=== PATIENT | male | born 1985 | race African-American/Black ===

== ENCOUNTER 2021-06-01 21:04 | Emergency (ER) | payer SELFPAY ==
[~2021-06-01] VITALS: Ht 180.3 cm; Wt 97.7 kg
[2021-06-01 22:00] VITALS: BP 137/69; PULSE 78; TEMP 98.1
== END 2021-06-01 22:00 | disposition home or self-care (01) ==
LOC: COL.ER 21:04
DX: S09.90XA Unspecified injury of head, initial encounter (principal); Z79.01 Long term (current) use of anticoagulants; W01.198A Fall on same level from slipping, tripping and stumbling with subsequent striking against other object, initial encounter; Y99.0 Civilian activity done for income or pay

== ENCOUNTER 2021-12-21 21:15 | Emergency (ER) | payer SELFPAY ==
[~2021-12-21] VITALS: Ht 177.8 cm; Wt 81.8 kg
[2021-12-21 21:24] VITALS: TEMP 97.9
[2021-12-21 21:50] LABS: BASO % 0.9 % (0.0-2.0); EOS % 0.9 % (0.0-4.0); GRAN # 1.6 K/mm3 (1.4-6.5); GRAN % 36.3 % (42.2-75.2); HEMATOCRIT 40.4 % (42.0-52.0); HEMOGLOBIN 14.6 g/dl (13.5-18.0); LYMPH # 2.2 K/mm3 (1.2-3.4); LYMPH % 50.5 % (20.0-51.0); MEAN CELL VOLUME 98 fl (80.0-100.0); MEAN CORPUSCULAR HEMOGLOBIN 35 pg (27-31); MEAN CORPUSCULAR HGB CONC 36 g/dl (33.0-37.0); MEAN PLATELET VOLUME 9.9 fl (7.4-10.4); MONO # 0.5 K/mm3 (0.1-0.6); MONO % 11.2 % (1.7-9.3); PLATELET COUNT 278 K/mm3 (130-400); RED BLOOD COUNT 4.13 M/mm3 (4.20-5.60); REDCELL DISTRIBUTION WIDTH-CV 12.3 % (11.5-14.5)
[2021-12-21 22:12] LABS: ALBUMIN 4.1 gm/dL (3.5-5.0); BILIRUBIN,TOTAL 0.3 mg/dL (0.2-1.2); CALCIUM 9.2 mg/dL (8.4-10.2); CREATININE, serum 0.93 mg/dL (0.72-1.25); POTASSIUM 3.9 mmol/L (3.5-4.5); TOTAL PROTEIN 7.5 gm/dL (6.2-8.1)
[2021-12-21 22:47] LABS: COLLECTION METHOD CLEAN CATCH
[2021-12-21 23:14] LABS: URINE COLOR Yellow (YELLOW)
[2021-12-21 23:15] LABS: MUCOUS Present (NOT PRESENT); SQUAMOUS EPITHELIAL 0-2 /hpf (0-10); URINE APPEARANCE Clear (CLEAR/HAZY); URINE BACTERIA None Seen /hpf (NONE SEEN); URINE BLOOD Negative (NEGATIVE); URINE GLUCOSE Negative (NEGATIVE); URINE KETONE Negative (NEGATIVE); URINE NITRATE Negative (NEGATIVE); URINE PROTEIN(semi-quant) Negative (NEGATIVE); URINE RBC 0-2 /hpf (0-2); URINE UROBILINOGEN 0.2 E.U/dL (0.2-1.0)
[2021-12-21 23:36] VITALS: BP 134/99; PULSE 71
== END 2021-12-21 23:38 | disposition home or self-care (01) ==
LOC: COL.ER 21:15
PROVIDERS: Emergency Medicine
DX: R55 Syncope and collapse (principal); E86.0 Dehydration; Z20.822 Contact with and (suspected) exposure to COVID-19; Z28.310 Unvaccinated for COVID-19; W18.39XA Other fall on same level, initial encounter; W22.8XXA Striking against or struck by other objects, initial encounter
CPT/HCPCS: J7030

== ENCOUNTER 2022-07-24 12:18 | Emergency (ER) | payer SELFPAY ==
[~2022-07-24] VITALS: Ht 180.3 cm; Wt 87.3 kg
[2022-07-24 12:41] VITALS: TEMP 98.1
[2022-07-24 14:09] VITALS: BP 145/81; PULSE 73
== END 2022-07-24 14:09 | disposition home or self-care (01) ==
LOC: COL.ER 12:18
DX: S63.501A Unspecified sprain of right wrist, initial encounter (principal); F17.290 Nicotine dependence, other tobacco product, uncomplicated; Z28.310 Unvaccinated for COVID-19; W18.30XA Fall on same level, unspecified, initial encounter; Y92.096 Garden or yard of other non-institutional residence as the place of occurrence of the external cause

== ENCOUNTER 2022-08-26 09:13 | Emergency (ER) | payer SELFPAY ==
[~2022-08-26] VITALS: Ht 180.3 cm; Wt 90.0 kg
[2022-08-26 10:20] LABS: BASO % 0.2 % (0.0-2.0); GRAN # 9.2 K/mm3 (1.4-6.5); GRAN % 81.4 % (42.2-75.2); HEMATOCRIT 40.4 % (42.0-52.0); LYMPH % 8.8 % (20.0-51.0); MEAN CELL VOLUME 94 fl (80.0-100.0); MEAN CORPUSCULAR HEMOGLOBIN 35 pg (27-31); MEAN CORPUSCULAR HGB CONC 37 g/dl (33.0-37.0); MEAN PLATELET VOLUME 10.3 fl (7.4-10.4); MONO % 9.1 % (1.7-9.3); PLATELET COUNT 182 K/mm3 (130-400); RED BLOOD COUNT 4.31 M/mm3 (4.20-5.60); REDCELL DISTRIBUTION WIDTH-CV 12.3 % (11.5-14.5)
[2022-08-26 10:43] LABS: ALBUMIN 3.7 gm/dL (3.5-5.0); BILIRUBIN,TOTAL 0.8 mg/dL (0.2-1.2); CALCIUM 9.5 mg/dL (8.4-10.2); CREATININE, serum 1.08 mg/dL (0.72-1.25); POTASSIUM 3.9 mmol/L (3.5-4.5); TOTAL PROTEIN 7.8 gm/dL (6.2-8.1)
[2022-08-26] MEDS ORDERED: DOXYCYCLINE 10100 MG PO (11:47)
[2022-08-26 11:59] VITALS: BP 141/98; PULSE 96; TEMP 98.8
== END 2022-08-26 12:03 | disposition home or self-care (01) ==
LOC: COL.ER 09:13
PROVIDERS: Emergency Medicine
DX: J18.9 Pneumonia, unspecified organism (principal); J84.10 Pulmonary fibrosis, unspecified; Z20.822 Contact with and (suspected) exposure to COVID-19; Z28.310 Unvaccinated for COVID-19
CPT/HCPCS: J1885; J7030; Q9967